=== PATIENT | female | born 1955 | race American Indian/Alaskan Native ===

== ENCOUNTER 2016-12-04 09:10 | Emergency (ER) | payer MEDICARE ==
[2016-12-04] MEDS ORDERED: TYLENOL PO ONE (10:32)
[2016-12-04] MEDS ORDERED: NACL 0.9% 1000 ML 1,000 ML IV ONE (10:50)
[2016-12-04] MEDS ORDERED: BENADRYL IV ONE (10:50)
[2016-12-04] MEDS ORDERED: REGLAN IV ONE (10:50)
[2016-12-04] MEDS ORDERED: MORPHINE IV ONE (10:50)
--- NOTE | 2016-12-04 11:25 | Cat Scan Report ---
CT HEAD WITHOUT CONTRAST: HISTORY: Headache. Serial contiguous axial images were obtained through the cranium. Intravenous contrast material was not administered. The ventricles are normal in size and appearance. There is no mass effect or midline shift. No areas of abnormally increased or decreased attenuation are seen. No mass lesion is seen. Previous aneurysm clipping along the right side of the [place] is noted. The mastoid air cells and visualized portions of the sinuses are normal. IMPRESSION: No acute intracranial process.
--- NOTE | 2016-12-04 12:58 | Emergency Department Report ---
HPI - General Chief Complaint: Headache Time Seen by Provider: 12/04/16 10:38 - HPI HPI: The patient is 61 yo female whom presents for evaluation of headache. The patient reports on and off headache for the past 2 weeks, worsening and becoming constant 2 days ago, 10/10 in severity, aching in quality, exacerbated with bright lights. She also reports some mild dizziness with head position changes and standing. The patient denies fever, trauma or other head injury, neck pain, neck stiffness, vision or hearing changes, smell or taste changes, paresthesias, facial drooping, slurred speech, seizure-like activity, urine or bowel incontinence or retention, or other focal neurological deficit. ED Past Medical Hx - Past Medical History Hx Hypertension: Yes Hx Arthritis: Yes Hx Seizures: Yes (LAST SZ ) Hx Asthma: No Hx COPD: No Hx HIV: No - Surgical History Additional Surgical History: Brain aneuryms repair, hysterectomy, tubal ligation - Social History Smoking Status: Former Smoker Substance Use Type: None - Medications Home Medications: Home Medications Medication Instructions Recorded Confirmed Last Taken Type Gabapentin [Gabapentin] 1 cap PO BID 10/08/14 12/04/16 10/14/14 History Phenytoin Sodium Extended 2 cap PO BID 10/08/14 12/04/16 10/14/14 History [Dilantin] Rosuvastatin (Nf) [Crestor] 1 tab PO DAILY 10/08/14 12/04/16 10/14/14 History Aspirin/Caffeine [Bc Arthritis 1 each PO Q6H PRN 12/04/16 12/04/16 Unknown History Powder Packet] Butalb/Acetamin/Caff 50-325-40 1 - 2 tab PO Q6HR PRN #14 tab 12/04/16 Unknown Rx [Fioricet] Diclofenac Sodium 75 mg PO BID 12/04/16 12/04/16 Unknown History Ergocalciferol [Vitamin D2] 1 cap PO QWEEK 12/04/16 12/04/16 Unknown History Ibuprofen [Motrin] 800 mg PO Q8HR PRN #15 tablet 12/04/16 Unknown Rx Ondansetron [Zofran TAB] 4 mg PO Q8HR PRN #15 tablet 12/04/16 Unknown Rx Valsartan/Hydrochlorothiazide 1 each PO DAILY 12/04/16 12/04/16 Unknown History [Valsartan-Hctz 160-12.5 mg Tab] ED Review of Systems ROS: Stated complaint: HEADACHES/DIZZINESS Other details as noted in HPI Constitutional: denies: fever; reports lightheadedness ENT: denies: throat or neck pain Respiratory: denies: cough, shortness of breath Cardiovascular: denies: chest pain Endocrine: denies unexplained weight loss or gain Gastrointestinal: denies: abdominal pain, nausea Genitourinary: denies: dysuria Musculoskeletal: denies: leg swelling Skin: denies: rash Neurological: reports headache Hematological/Lymphatic: denies: easy bleeding or easy bruising Psych: denies sadness or hopelessness Physical Exam - Physical Exam Vital Signs: Vital Signs 12/04/16 12/04/16 12/04/16 09:31 09:54 10:36 Temperature 98.1 F Pulse Rate 93 H 94 H Respiratory 20 20 18 Rate Blood Pressure 130/75 Blood Pressure 129/75 [Right] O2 Sat by Pulse 95 100 95 Oximetry Physical Exam: General: well-nourished, well-developed, no acute distress Head: Normocephalic, atraumatic Eyes: normal sclera, EOMI, PERRL ENT: Mucous membranes are pale and dry Neck: No neck stiffness, no cervical adenopathy Respiratory: Breath sounds equal bilaterally, no wheezing, rales, or rhonchi Cardio: S1 and S2 present, no murmurs, rubs, gallops, capillary refill is delayed Abdomen: Normoactive bowel sounds, soft abdomen, no rigidity, no guarding or rebound tenderness Musc: No pitting edema Skin: No rash Neuro: Alert oriented 3, no facial drooping, CN II through XII grossly intact, normal speech, no pronator drift, no motor deficit or sensation deficit in the arms or legs, reflexes 2+ symmetric on DTR testing, Romberg negative, no abnormal gait with ambulation Psych: Normal affect ED Course Vital Signs 12/04/16 12/04/16 12/04/16 09:31 09:54 10:36 Temperature 98.1 F Pulse Rate 93 H 94 H Respiratory 20 20 18 Rate Blood Pressure 130/75 Blood Pressure 129/75 [Right] O2 Sat by Pulse 95 100 95 Oximetry ED Medical Decision Making - Medical Decision Making The patient was seen and examined by myself. 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 On initial evaluation, the patient was found to be in no distress. although there are no neuro deficits or other findings on examination concerning for CVA or increased ICP, as the patient's pain has been a 10 out of 10 in severity and constant for the past greater than 24 hours, CT of the head will be obtained. IV access is established and the patient is given 1 L normal saline fluid bolus for treatment of dehydration and lightheadedness, IV Reglan, Benadryl, and IV Toradol for headache. The patient was reevaluated and reported that their symptoms were markedly improved. The patient is stable for discharge with outpatient follow-up. The patient is given follow-up and return instructions. The patient expressed understanding and agreed with the plan. The patient is discharged in stable condition. Critical care attestation.: If time is entered above; I have spent that time in minutes in the direct care of this critically ill patient, excluding procedure time. ED Disposition Clinical Impression: Dehydration, Orthostatic lightheadedness Acute nonintractable headache Qualifiers: Headache type: tension-type Qualified Code(s): G44.209 - Tension-type headache , unspecified, not intractable Disposition: DISCHARGED TO HOME OR SELFCARE Is pt being admited?: No Does the pt Need Aspirin: No Condition: Stable Instructions: Dehydration (ED), Acute Headache (ED), Dizziness (ED) Prescriptions: Butalb/Acetamin/Caff 50-325-40 [Fioricet] 1 - 2 tab PO Q6HR PRN #14 tab PRN Reason: Headache Ibuprofen [Motrin] 800 mg PO Q8HR PRN #15 tablet PRN Reason: Pain Ondansetron [Zofran TAB] 4 mg PO Q8HR PRN #15 tablet PRN Reason: Nausea Referrals: BOYD FARNSWORTH MD [Primary Care Provider] - 3-5 Days Time of Disposition: 11:57
[2016-12-04] MEDS ORDERED: TORADOL IV ONE (14:25)
[2016-12-04 15:28] VITALS: BP 126/74
== END 2016-12-04 15:29 | disposition home or self-care (01) ==
LOC: ED 09:10
DX: E86.0 Dehydration (principal); G44.209 Tension-type headache, unspecified, not intractable; R42 Dizziness and giddiness; I10 Essential (primary) hypertension; M19.90 Unspecified osteoarthritis, unspecified site; Z87.891 Personal history of nicotine dependence; Z79.82 Long term (current) use of aspirin
CPT/HCPCS: 70450; 96361; 96374; 96375; 99284; J1200; J1885; J2765; J7030; J2270

== ENCOUNTER 2017-01-05 09:02 | Outpatient (CLI) | payer MEDICARE ==
--- NOTE | 2017-01-05 15:58 | Mammography Report ---
Bilateral digital screening mammogram with CAD. Comparison study is dated September 09, 2014. Findings: There is heterogeneous density of the fibroglandular tissue. The overall pattern is stable. 2 biopsy clips are seen within each breast adjacent to parenchymal opacities which have not changed in size or configuration since the prior study. No new masses or architectural distortion. No suspicious microcalcifications are seen. Impression: Stable benign findings.
== END 2017-01-05 09:03 | disposition home or self-care (01) ==
LOC: MAMMO 09:02
PROVIDERS: ATTEND Internal Medicine
DX: Z12.31 Encounter for screening mammogram for malignant neoplasm of breast (principal); I10 Essential (primary) hypertension
CPT/HCPCS: 77067; G0202

== ENCOUNTER 2018-02-27 21:02 | Emergency (ER) | payer MEDICARE ==
[2018-02-27] MEDS ORDERED: ZOFRAN ONE (21:45)
[2018-02-27] MEDS ORDERED: ZOFRAN IV ONE (21:53)
[2018-02-27] MEDS ORDERED: NACL 0.9% 500 ML 500 ML IV ONE (22:41)
[2018-02-27 22:56] LABS: Hemoglobin 13.2 gm/dl (10.1-14.3); Red Blood Count 4.39 M/mm3 (3.65-5.03)
[2018-02-27 22:57] LABS: Basophils # (Auto) 0.1 K/mm3 (0.0-0.1); Basophils % (Auto) 0.6 % (0.0-1.8); Hematocrit 38.7 % (30.3-42.9); Lymphocytes % (Auto) 17.5 % (13.4-35.0); Mean Corpuscular HGB Conc 34 % (30-34); Mean Corpuscular Hemoglobin 30 pg (28-32); Mean Corpuscular Volume 88 fl (79-97); Monocytes # (Auto) 0.5 K/mm3 (0.0-0.8); Monocytes % (Auto) 4.8 % (0.0-7.3); Platelet Count 184 K/mm3 (140-440); Red Cell Distribution Width 13.5 % (13.2-15.2)
--- NOTE | 2018-02-27 23:04 | Cat Scan Report ---
FINAL REPORT EXAM: CT HEAD/BRAIN WO CON HISTORY: neuro deficits < 6hrs or sx present upon awakening TECHNIQUE: Standard unenhanced CT of the head at 5.0 millimeter axial increments. PRIORS: None. FINDINGS: Evidence for prior right frontal craniotomy with aneurysm clips present in the right middle cranial fossa in the suprasellar region. The ventricular system is normal in size and configuration. There is no evidence for parenchymal volume loss. There is no evidence for mass lesion, mass effect, midline shift, acute intracranial hemorrhage, or acute ischemia/ infarction. No evidence for acute skull fracture is seen. No abnormality in the overlying scalp soft tissues is seen. Visualized paranasal sinuses are clear. IMPRESSION: Postsurgical changes on the right. No acute intracranial process noted.
[2018-02-27 23:10] LABS: BUN/Creatinine Ratio 10; Blood Urea Nitrogen 7 mg/dL (7-17); Calcium 10.3 mg/dL (8.4-10.2); Hemolysis Index 49
[2018-02-27 23:12] LABS: INR 0.92 (0.87-1.13)
[2018-02-27 23:13] LABS: Partial Thromboplastin Time 20.8 Sec. (24.2-36.6)
[2018-02-27] MEDS ORDERED: BENADRYL IV ONE (23:27)
[2018-02-27] MEDS ORDERED: SUBLIMAZE IV ONE (23:28)
--- NOTE | 2018-02-27 23:33 | Emergency Department Report ---
HPI - General Chief Complaint: Headache Time Seen by Provider: 02/27/18 22:40 - HPI HPI: The patient is a 62-year-old female who presents for evaluation of headache. The patient reports headache for the past one day, constant since onset, currently 7/10 in severity, sharp in quality, exacerbated with bright lights and position changes. She also is experiencing dizziness with position changes , moderate in severity, improved with lying down and rest. The patient denies fever, head injury, neck pain, neck stiffness, vision or hearing changes, smell or taste changes, paresthesias, facial drooping, slurred speech, seizure-like activity, urine or bowel incontinence or retention, or other focal neurological deficit. ED Past Medical Hx - Past Medical History Previous Medical History?: Yes Hx Hypertension: Yes Hx Arthritis: Yes Hx Seizures: Yes (last 10 yrs ago) Hx Asthma: No Hx COPD: No Hx HIV: No - Surgical History Past Surgical History?: Yes Additional Surgical History: Brain aneuryms repair 1995, hysterectomy, tubal ligation - Social History Smoking Status: Former Smoker - Medications Home Medications: Home Medications Medication Instructions Recorded Confirmed Last Taken Type Gabapentin 1 cap PO BID 10/08/14 12/04/16 10/14/14 History Phenytoin Sodium Extended 2 cap PO BID 10/08/14 12/04/16 10/14/14 History [Dilantin] Rosuvastatin (Nf) [Crestor] 1 tab PO DAILY 10/08/14 12/04/16 10/14/14 History Aspirin/Caffeine [Bc Arthritis 1 each PO Q6H PRN 12/04/16 12/04/16 Unknown History Powder Packet] Butalb/Acetamin/Caff 50-325-40 1 - 2 tab PO Q6HR PRN #14 tab 12/04/16 Unknown Rx [Fioricet] Diclofenac Sodium 75 mg PO BID 12/04/16 12/04/16 Unknown History Ergocalciferol [Vitamin D2] 1 cap PO QWEEK 12/04/16 12/04/16 Unknown History Ibuprofen [Motrin] 800 mg PO Q8HR PRN #15 tablet 12/04/16 Unknown Rx Ondansetron [Zofran TAB] 4 mg PO Q8HR PRN #15 tablet 12/04/16 Unknown Rx Valsartan/Hydrochlorothiazide 1 each PO DAILY 12/04/16 12/04/16 Unknown History [Valsartan-Hctz 160-12.5 mg Tab] Meclizine [Antivert] 25 mg PO TID PRN #20 tablet 02/28/18 Unknown Rx traMADol [Ultram 50 MG tab] 50 mg PO Q6HR PRN #10 tablet 02/28/18 Unknown Rx ED Review of Systems ROS: Stated complaint: HEADACHE/NV Other details as noted in HPI Constitutional: denies: fever ENT: denies: throat or neck pain Respiratory: denies: cough, shortness of breath Cardiovascular: denies: chest pain Endocrine: denies unexplained weight loss or gain Gastrointestinal: denies: abdominal pain, nausea Genitourinary: denies: dysuria Musculoskeletal: denies: leg swelling Skin: denies: rash Neurological: reports dizzy and headache Hematological/Lymphatic: denies: easy bleeding or easy bruising Psych: denies sadness or hopelessness Physical Exam - Physical Exam Vital Signs: Vital Signs 02/27/18 02/27/18 02/27/18 21:37 22:37 22:46 Temperature 98.2 F Pulse Rate 70 57 L Respiratory 16 19 Rate Blood Pressure 125/63 130/52 130/52 O2 Sat by Pulse 100 96 Oximetry 02/27/18 23:00 Temperature Pulse Rate Respiratory 15 Rate Blood Pressure O2 Sat by Pulse 95 Oximetry Physical Exam: General: well-nourished, well-developed, no acute distress Head: Normocephalic, atraumatic Eyes: normal sclera ENT: Mucous membranes are pink and moist Neck: trachea midline, neck supple, No neck stiffness, no cervical adenopathy Respiratory: Breath sounds equal bilaterally, no wheezing, rales, or rhonchi Cardio: S1 and S2 present, no murmurs, rubs, gallops, capillary refill is brisk Abdomen: Normoactive bowel sounds, soft abdomen, no rigidity, no guarding or rebound tenderness Chest WALL/Back: No tenderness to palpation of the chest wall, no CVA tenderness with percussion Musc: No pitting edema Skin: No rash Neuro: alert oriented x4, normal cognition, speech normal, PERRL, EOM intact, no facial drooping, no uvula or tongue deviation on protrusion, no deficit with rotation of neck or shoulder shrug, no obvious gross motor deficit in the upper or lower extremities with flexion or extension at the shoulder, elbow, wrist, hip, knee, or ankle bilaterally, no obvious gross sensation deficit to crude touch or 2 pt discrimination, 2+ symmetric reflexes on DTR testing, no coordination deficit with [id number] or [id number] testing, Babinski downgoing, romberg negative, patient able to to ambulate without abnormal gait Psych: Normal affect ED Course Vital Signs 02/27/18 02/27/18 02/27/18 21:37 22:37 22:46 Temperature 98.2 F Pulse Rate 70 57 L Respiratory 16 19 Rate Blood Pressure 125/63 130/52 130/52 O2 Sat by Pulse 100 96 Oximetry 02/27/18 23:00 Temperature Pulse Rate Respiratory 15 Rate Blood Pressure O2 Sat by Pulse 95 Oximetry ED Medical Decision Making - Lab Data Result diagrams: 02/27/18 22:06 02/27/18 22:06 - Medical Decision Making The patient was seen and examined by myself. The patient is placed on a director of cardiac rehabilitation and continuous pulse ox. On initial evaluation, the patient was found to be in no distress. Evaluation orders were placed. The patient is given IV normal saline fluid bolus for treatment of her dehydration and dizziness, and IV fentanyl for treatment of her pain. Lab results are unremarkable. CT scan the head is negative for acute intracranial disease process. The patient was reevaluated and reported that their symptoms were markedly improved. The patient is stable for discharge with outpatient follow- up. The patient is given follow-up and return instructions. The patient expressed understanding and agreed with the plan. The patient is discharged in stable condition. Critical care attestation.: If time is entered above; I have spent that time in minutes in the direct care of this critically ill patient, excluding procedure time. ED Disposition Clinical Impression: Acute non intractable tension-type headache, Dehydration, Orthostatic dizziness Disposition: DC-01 TO HOME OR SELFCARE Is pt being admited?: No Does the pt Need Aspirin: No Condition: Stable Instructions: Tension Headache (ED), Migraine Headache (ED) Referrals: PRIMARY CARE, [Primary Care Provider] - 3-5 Days Time of Disposition: 23:34
[2018-02-28 01:15] VITALS: BP 142/72
== END 2018-02-28 01:21 | disposition home or self-care (01) ==
LOC: ED 21:02
DX: G44.319 Acute post-traumatic headache, not intractable (principal); E86.0 Dehydration; I95.1 Orthostatic hypotension; I10 Essential (primary) hypertension; M19.90 Unspecified osteoarthritis, unspecified site; Z87.891 Personal history of nicotine dependence; Z90.710 Acquired absence of both cervix and uterus; Z98.51 Tubal ligation status
CPT/HCPCS: 36415; 70450; 80048; 84484; 85025; 85610; 85670; 85730; 93005; 93010; 96374; 96375; 99284; J1200; J2405; J3010; J7040